=== PATIENT | female | born 1960 | race Caucasian/White ===

== ENCOUNTER 2019-06-21 09:01 | Day surgery (SDC) | payer BC, SELFPAY ==
[2019-06-20 12:51] VITALS: BMI 30.1
[2019-06-21 09:19] VITALS: BP 121/79; PULSE 78; RESP 18; TEMP 37.1; O2SAT 98
--- NOTE | 2019-06-21 09:36 | P.HP_ITS ---
Same Day Surgery H&P Indication for Procedure/HPI DATE OF PROCEDURE: June 21, 2019 CHIEF COMPLAINT/INDICATIONFOR SURGICAL PROCEDURE: Bleeding Per rectum PREOP DIAGNOSIS: Lower GI bleed PLANNED PROCEDRUE: Operation Date: 06/21/19 10:30 Proposed Procedures p EGD/Colon [id number] Z87.19(Not Applicable) - Jesus Velasquez MD s Colonoscopy(Not Applicable) - Jesus Velasquez MD This is a pleasant 58 years old female patient had history of bleeding per rectum and was diagnosed with colitis about couple of months ago patient was treated conservatively and she was presented to my office for further evaluation. After thorough history physical examination and reviewing the chart and images I did branch credit counselor the patient for diagnostic EGD and colonoscopy ROS All systems have been reviewed negative except as for the above or per problem list Medications/Allergies* Home Medications Medication Instructions Recorded Confirmed Type albuterol sulfate 90 mcg/actuation 2 puff INHALATION Q6H PRN 05/10/19 06/21/19 History aerosol inhaler alprazolam 0.25 mg tablet 0.25 mg PO DAILY 05/10/19 06/21/19 History fluoxetine 40 mg capsule 40 mg PO DAILY 05/10/19 06/21/19 History fluticasone propionate 50 2 spray INTRANASAL DAILY 05/10/19 06/21/19 History mcg/actuation nasal spray,suspension levothyroxine 75 mcg capsule 75 mcg PO DAILY 05/10/19 06/21/19 History loratadine 10 mg capsule 10 mg PO DAILY 05/10/19 06/21/19 History pravastatin 40 mg tablet 40 mg PO DAILY 05/10/19 06/21/19 History lisinopril 20 mg PO DAILY 06/20/19 06/21/19 History Allergies/Adverse Reactions Allergy/AdvReac Type Severity Reaction Status Date / Time Penicillins Allergy Severe Unknown Verified 06/21/19 09:51 tetracycline Allergy Severe Unknown Verified 06/21/19 09:51 nitrofurantoin Allergy Intermediate Unknown Verified 06/21/19 09:51 [From Macrobid] Sulfa (Sulfonamide Allergy Mild Unknown Verified 06/21/19 09:51 Antibiotics) Pertinent History/Comorbid Conditions* Medical History (Updated 05/11/19 @ 10:03 by Jesus Velasquez MD) Anxiety Depression History of GI bleed Hypertension Hypothyroidism Surgical History (Updated 05/11/19 @ 10:00 by Jesus Velasquez MD) History of bilateral cataract extraction History of colonoscopy lora- normal History of tonsillectomy Family History (Updated 05/11/19 @ 09:45 by Bel Carballo RN) Denies family history of Anesthesia complication Bleeding disorder Social History Smoking and tobacco status: never smoked Second hand smoke exposure: No Alcohol intake: never Adopted: No Caregiver/support person: Yes Lives independently: Yes Household members: spouse Housing: House Marital status: service: No Current occupational status: retired Pets and animals: No History of recent travel: No Sexually active: No Current gender identity: Female Zita/Voodoo: Anglican Special zita needs: No Agree to transfusion: No Financial difficulty paying for basics: Decline to Answer Pertinent Exam Findings alert, oriented x 3, clear to auscultation bilaterally, regular rate & rhythm and procedure specific exam findings (Abdominal examination nontender nondistended soft no guarding or rigidity) Recommendations Surgery/Procedure today (Diagnostic EGD and colonoscopy and informed consent per chart) Coding Level of Care Code Acute Director Of Special Events for g Gurwinder
--- NOTE | 2019-06-21 09:37 | P.ANESASSM_ITS ---
Pre-Anesthetic Assessment Pre-Anesthetic Assessment: Height/Weight: Height 1.73 m Weight 89.811 kg Temp Pulse Resp BP Pulse Ox 98.8 F 78 18 121/79 98 06/21/19 09:19 06/21/19 09:19 06/21/19 09:19 06/21/19 09:19 06/21/19 09:19 Preop Diagnosis: Lower GI bleed Proposed Procedure: Operation Date: 06/21/19 10:30 Proposed Procedures p EGD/Colon [id number] Z87.19(Not Applicable) - Jesus Velasquez MD s Colonoscopy(Not Applicable) - Jesus Velasquez MD Familial anesthetic complications: none Was Beta Kei taken within 24 hours: N/A Last intake: Intake NPO > 8 hrs Last Liquid Date 06/20/19 Last Solid Date 06/19/19 Social: Social History: No alcohol and No tobacco Exam: Pre-Anes Outpt Exam: alert, oriented x 3, clear to auscultation bilaterally and regular rate & rhythm Airway: Cervical ROM: WNL MP: 4 Dentition: Full Additional comments: receding mandible Pulmonary: Pulmonary: None reported CV/HEM: CV/HEM: HTN : : None reported Hepatic: Hepatic: None reported GI: GI: None reported Metabolic: Metabolic: Thyroid Musc/skel: Musc/skel: None reported Neuropsych: Neuropsych: None reported Anesthetic Plan: ASA status: 2 Anesthesia: MAC Risk of > 500 ml blood loss (7ml/kg in children): No PFSH Anesthesia PFSH: Social History Smoking and tobacco status: never smoked Second hand smoke exposure: No Alcohol intake: never Adopted: No Caregiver/support person: Yes Lives independently: Yes Household members: spouse Housing: House Marital status: service: No Current occupational status: retired Pets and animals: No History of recent travel: No Sexually active: No Current gender identity: Female Zita/Zoroastrianism: Zoroastrianism Special zita needs: No Agree to transfusion: No Financial difficulty paying for basics: Decline to Answer Data Anesthesia Cardiac Studies: No Data to Display
[2019-06-21] MEDS: sodium chloride 0.9% 1,000 ML 30 ML IV (09:45)
[2019-06-21 10:35] VITALS: BP 107/68; PULSE 61; RESP 18; TEMP 36.1; O2SAT 100
[2019-06-21 11:03] VITALS: BP 124/67; PULSE 62; RESP 18; O2SAT 100
== END 2019-06-21 11:14 | disposition home or self-care (01) ==
PROVIDERS: Family Provider Family Medicine; PCP Family Medicine; Visit Provider Surgery
PROC: 0DJ08ZZ Inspection of Upper Intestinal Tract, Via Natural or Artificial Opening Endoscopic (ICD-10-PCS; CPT 43235; principal; 2019-06-21 10:20)
PROC: 0DJD8ZZ Inspection of Lower Intestinal Tract, Via Natural or Artificial Opening Endoscopic (ICD-10-PCS; CPT 45378; 2019-06-21 10:20)
DX: K62.5 Hemorrhage of anus and rectum (principal); K44.9 Diaphragmatic hernia without obstruction or gangrene; K29.70 Gastritis, unspecified, without bleeding; K29.80 Duodenitis without bleeding; I10 Essential (primary) hypertension
CPT/HCPCS: 43235; 45378; 12345; J2001; J2704; J7030

== ENCOUNTER → 2020-04-16 14:32 | Outpatient (BNVA) | payer BC, SELFPAY | PROVIDERS: Family Provider Family Medicine; PCP Family Medicine; Referring Provider Family Medicine; Visit Provider Podiatrist Foot & Ankle Surgery | DX: M79.671 Pain in right foot (principal); M79.672 Pain in left foot | CPT/HCPCS: 73630 ==

== ENCOUNTER 2020-04-16 15:02 | Outpatient (CLI) | payer BC, SELFPAY | END 2020-04-16 15:03 | disposition home or self-care (01) | LOC: SPT 15:05 | PROVIDERS: Family Provider Family Medicine; PCP Family Medicine; Visit Provider Podiatrist Foot & Ankle Surgery | DX: Z46.89 Encounter for fitting and adjustment of other specified devices (principal); M92.60 Juvenile osteochondrosis of tarsus, unspecified ankle | CPT/HCPCS: 97760; L4397 ==

== ENCOUNTER → 2020-04-23 14:56 | Outpatient (BNVA) | payer BC, SELFPAY | PROVIDERS: Family Provider Family Medicine; PCP Family Medicine; Referring Provider Family Medicine; Visit Provider Internal Medicine | DX: E03.9 Hypothyroidism, unspecified (principal); E53.8 Deficiency of other specified B group vitamins; E55.9 Vitamin D deficiency, unspecified; R53.83 Other fatigue; R63.5 Abnormal weight gain | CPT/HCPCS: 99205 ==

== ENCOUNTER 2020-05-10 11:22 | Outpatient (CLI) | payer BC, SELFPAY ==
--- NOTE | 2020-05-10 11:29 | MM_ITS ---
WS: [id number] BILATERAL DIGITAL SCREENING MAMMOGRAPHY WITH CAD CLINICAL INFORMATION: SCREENING HISTORY: Screening mammogram. No current complaints. COMPARISON: TECHNIQUE: Bilateral CC and MLO views. FINDINGS: Scattered fibroglandular densities bilaterally. A few stable ovoid nodules right breast. No suspiciou s focal mass, asymmetry, calcifications, or architectural distortion. No evidence of malignancy. A fe w punctate calcifications. Vascular calcifications. MM/[id number] IMPRESSION: BI-RADS: 2-Benign FOLLOW UP: 1 Year Follow-up Recommend return to annual screening mammography.
== END 2020-05-10 11:23 | disposition home or self-care (01) ==
PROVIDERS: PCP Family Medicine; Visit Provider Family Medicine
DX: Z12.31 Encounter for screening mammogram for malignant neoplasm of breast (principal)
CPT/HCPCS: 77067

== ENCOUNTER 2021-04-23 09:02 | Outpatient (CLI) | payer OTHER, SELFPAY ==
[2021-04-23 09:57] LABS: Free T4 Free Thyroxine 1.46 ng/dL (0.82-1.77)
[2021-04-23 10:34] LABS: Thyroid Stimulating Hormone 3.69 uIU/mL (0.27-4.20)
== END 2021-04-23 09:03 | disposition home or self-care (01) ==
PROVIDERS: PCP Family Medicine; Visit Provider Internal Medicine
DX: E03.9 Hypothyroidism, unspecified (principal)
CPT/HCPCS: 84439; 84443

== ENCOUNTER 2021-06-27 15:02 | Emergency (ER) | payer OTHER, SELFPAY ==
[2021-06-27 15:19] VITALS: BP 145/95; PULSE 91; RESP 18; TEMP 36.6; O2SAT 95; BMI 29.6
--- NOTE | 2021-06-27 16:16 | USR_ITS ---
PROCEDURE INFORMATION: Exam: US Abdomen, Limited; Right Upper Quadrant Exam date and time: 06/27/2021 4:28 PM Age: 60 years old Clinical indication: Abdominal pain; Acute; Additional info: Ruq pain TECHNIQUE: Imaging protocol: US abdomen. Real time ultrasound with image documentation. Limited exam focused on the right upper quadrant. COMPARISON: CT abdomen pelvis w con* [id number] 04/26/2019 6:28 PM FINDINGS: Liver: Moderately increased echotexture in the liver, consistent with moderate fatty infiltration. Gallbladder: The gallbladder is unremarkable. No gallstones or intraluminal sludge. No gallbladder wall thickening. No pericholecystic fluid. Sonographic Berg's sign is negative per report from the fiber technologist. Biliary ducts: Unremarkable. No stones. No dilation. Pancreas: Incomplete visualization of the pancreas due to overlying bowel gas. Visualized portions of the pancreas are unremarkable. Right kidney: The right kidney is unremarkable. Aorta: Visualized aorta is unremarkable. Inferior vena cava: Visualized IVC is unremarkable. Portal venous: Hepatopetal flow in the portal vein. Intraperitoneal space: No ascites. US/US gall bladder [id number] IMPRESSION: 1. Moderate fatty infiltration of the liver. 2. Incidental/nonacute findings are listed in the report.
--- NOTE | 2021-06-27 16:17 | ED_ITS ---
HPI - Abdominal Pain General: Chief Complaint: Abdominal Pain Stated Complaint: Sent over by doctor, gallbladder problems Time Seen by Provider: 06/27/21 16:08 Source: patient Mode of arrival: ambulatory Limitations: no limitations History of Present Illness: Patient is a 60-year-old female presents to ED today with a complaint of right upper quadrant pain over the past 3 days. Patient tells me pain has been fairly constant and worsening in severity. She states pain seems to radiate into her back. She is not complaining of nausea, vomiting, or changes in bowel movements. She does complain of some urinary frequency and urgency. She has not noticed any burning with urination or blood in her urine. She states she was evaluated by the nurse practitioner Dr. Bradley's office and referred to the ED for further evaluation. MD elicited complaint: abdominal pain Onset (ago): day(s) Pain Consistency: constant Location: RUQ Severity: moderate Quality: sharp Radiation: back Migration to: no migration Relieving factors: nothing Associated Symptoms: Denies change in bowel habits, chills, diarrhea, dysuria, fever(s), hematuria, nausea and vomiting Related Data: Patient : No Review of Systems Const: Denies: fever(s), chills, body aches, fatigue or malaise Card: Denies: chest pain Resp: Denies: dyspnea GI: Reports: abdominal pain; Denies: nausea, vomiting, diarrhea or change in bowel habits : Reports: urinary frequency and urinary urgency; Denies: flank pain, difficulty voiding, dysuria, hematuria or pelvic pain Musc: Denies: neck pain, back pain, extremity pain or joint pain Skin/Breast: Denies: rash Neuro: Denies: headache(s) PFS ED PFSH: Medical History Anxiety Depression History of GI bleed Hypertension Hypothyroidism Surgical History History of bilateral cataract extraction History of colonoscopy lora- normal History of tonsillectomy Family History Denies family history of Anesthesia complication Bleeding disorder Social History Smoking and tobacco status: current every day smoker Second hand smoke exposure: No Alcohol intake: never Adopted: No Caregiver/support person: Yes Lives independently: Yes Household members: spouse Housing: House Marital status: service: No Current occupational status: retired Pets and animals: No History of recent travel: No Sexually active: No Current gender identity: Female Zita/Adventist: Spiritism Special zita needs: No Agree to transfusion: No Financial difficulty paying for basics: Decline to Answer Physical Exam Const: COMMON NORMALS: no acute distress, patient oriented x3, no limitations, alert and well nourished GENERAL APPEARANCE: cooperative NUTRITIONAL APPEARANCE: overweight HENMT: COMMON NORMALS: normocephalic and atraumatic HEAD & SCALP: normocephalic and atraumatic Resp: COMMON NORMALS: normal respiratory effort and clear to auscultation bilaterally AUSCULTATION: clear to auscultation bilaterally Cardio: COMMON NORMALS: regular rate and regular rhythm RATE: regular rate RHYTHM: regular rhythm GI: COMMON NORMALS: Normal to inspection, nondistended, normoactive bowel sounds present, Soft to palpation, No hepatosplenomegaly present and no masses INSPECTION: Yes normal to inspection PALPATION: Yes Soft to palpation, Yes Tenderness to palpation present (GI) Details: RUQ, Yes No hepatosplenomegaly present and Yes Other GI palpation findings present (+ Berg's) : COMMON NORMALS: Yes no CVA tenderness BLADDER/KIDNEY EXAM: Yes no CVA tenderness Back/Pelvis: COMMON NORMALS: no CVA tenderness Extremity: COMMON NORMALS: normal to inspection Neuro: JOHANNE COMA SCALE: document GCS findings [place] coma scale eye opening: Spontaneous Johanne coma scale verbal response: Orientated Johanne coma scale motor response: Obey commands Johanne coma scale total score: 15 COMMON NORMALS: patient oriented x3 SENSORIUM/ORIENTATION: Yes alert Skin: COMMON NORMALS: no rashes or lesions noted GENERAL SKIN EXAM: no rashes or lesions noted Course Vital Signs: Vital signs: Vital Signs Temperature 97.8 F 06/27/21 15:19 Pulse Rate 91 06/27/21 15:19 Respiratory Rate 18 06/27/21 15:19 Blood Pressure 145/95 06/27/21 15:19 Pulse Oximetry 95 06/27/21 15:19 MDM - Abdominal Pain Medical Decision Making Patient's vital signs are normal. She has point tenderness to her right upper quadrant. Blood work overall is fairly unremarkable. She has normal LFTs. Gallbladder US is normal. UA is clear. At this time I do not have a clear etiology for her discomfort. I will write her for a small amount of pain/nausea medications and have her watch symptoms closely over the next 24-48 hours. Strict return to ED precautions verbally given to patient. Lab Data : 06/27/21 16:15 06/27/21 16:15 Labs/Radiology: Radiology Impressions Gallbladder Ultrasound 06/27/21 16:16 IMPRESSION: 1. Moderate fatty infiltration of the liver. 2. Incidental/nonacute findings are listed in the report. Laboratory Results WBC 12.6 10^3/uL (4.0-10.0) H 06/27/21 16:15 RBC 5.67 10^6/uL (4.1-5.3) H 06/27/21 16:15 Hgb 15.7 g/dL (11.5-15.3) H 06/27/21 16:15 Hct 50.3 % (37.0-47.0) H 06/27/21 16:15 MCV 88.7 fl (81-99) 06/27/21 16:15 MCH 27.7 pg (28.0-34.0) L 06/27/21 16:15 MCHC 31.2 g/dL (30.0-36.0) 06/27/21 16:15 RDW 13.7 % (12.1-15.1) 06/27/21 16:15 Plt Count 426 10^3/cmm (130-400) H 06/27/21 16:15 MPV 11.3 fL (7.4-10.4) H 06/27/21 16:15 Neut % (Auto) 68.2 % 06/27/21 16:15 Lymph % (Auto) 24.6 % 06/27/21 16:15 [place] % (Auto) 4.9 % 06/27/21 16:15 Eos % (Auto) 0.9 % 06/27/21 16:15 Baso % (Auto) 0.9 % 06/27/21 16:15 Neut # (Auto) 8.62 10^3/uL (1.8-7.7) H 06/27/21 16:15 Lymph # (Auto) 3.1 10^3/uL (0.8-4.8) 06/27/21 16:15 [place]ard # (Auto) 0.6 10^3/uL (0.2-0.9) 06/27/21 16:15 Eos # (Auto) 0.1 10^3/uL (0.0-0.8) 06/27/21 16:15 Baso # (Auto) 0.1 10^3/uL (0.0-0.1) 06/27/21 16:15 Nucleated RBC % (auto) 0 % 06/27/21 16:15 Nucleated RBCs # 0.0 /100WBC 06/27/21 16:15 Sodium 140 mmol/L (136-145) 06/27/21 16:15 Potassium 4.2 mmol/L (3.5-5.1) 06/27/21 16:15 Chloride 101 mmol/L (98-107) 06/27/21 16:15 Carbon Dioxide 27 mmol/L (22-29) 06/27/21 16:15 Anion Gap 16.2 (5-19) 06/27/21 16:15 BUN 11 mg/dL (6-20) 06/27/21 16:15 Creatinine 0.9 mg/dL (0.5-0.9) 06/27/21 16:15 GFR Calculation 64.3 mL/min (90-130) L 06/27/21 16:15 Glucose 136 mg/dL (65-115) H 06/27/21 16:15 Calculated Osmolality 291 mOsm/kg (285-295) 06/27/21 16:15 Calcium 9.9 mg/dL (8.5-10.5) 06/27/21 16:15 Total Bilirubin 0.3 mg/dL (0.15-1.2) 06/27/21 16:15 AST 19 U/L (0-32) 06/27/21 16:15 ALT 20 U/L (0-33) 06/27/21 16:15 Alkaline Phosphatase 142 IU/L (35-105) H 06/27/21 16:15 Total Protein 7.8 g/dL (6.6-8.7) 06/27/21 16:15 Albumin 4.8 g/dL (3.5-5.2) 06/27/21 16:15 Globulin 3.0 g/dL (1.3-4.6) 06/27/21 16:15 Lipase 50 U/L (13-60) 06/27/21 16:15 Urine Color Yellow (Yellow) 06/27/21 15:15 Urine Appearance Clear (CLEAR) 06/27/21 15:15 Urine pH 5 (5-7) 06/27/21 15:15 Ur Specific [place] 1.020 (1.005-1.030) 06/27/21 15:15 Urine Protein Neg (Negative) 06/27/21 15:15 Urine Glucose (UA) Norm (Normal) 06/27/21 15:15 Urine Ketones Negative (Negative) 06/27/21 15:15 Urine Blood Neg (Negative) 06/27/21 15:15 Urine Nitrate Negative (Negative) 06/27/21 15:15 Urine Bilirubin Neg (Negative) 06/27/21 15:15 Urine Urobilinogen 1 mg/dL (Negative) H 06/27/21 15:15 Ur Leukocyte Esterase Negative (Negative) 06/27/21 15:15 Discharge Plan Discharge Patient Disposition: Home Clinical Impression: Right upper quadrant abdominal pain of unknown etiology Condition: Stable Prescriptions: New hydrocodone-acetaminophen 5-325 mg tablet 1 tab PO Q6H PRN (Reason: pain) Qty: 14 0RF ondansetron 4 mg tablet,disintegrating 4 mg PO Q8H PRN (Reason: nausea and vomiting) Qty: 14 0RF No Action albuterol sulfate [ProAir HFA] 90 mcg/actuation HFA aerosol inhaler 2 puff INHALATION Q6H PRN (Reason: ALLERGIES) 0RF fluticasone propionate [Flonase Allergy Relief] 50 mcg/actuation spray,suspension 2 spray INTRANASAL DAILY 0RF alprazolam 0.25 mg tablet 0.25 mg PO DAILY 0RF loratadine 10 mg capsule 10 mg PO DAILY 0RF fluoxetine 40 mg capsule 40 mg PO DAILY 0RF pravastatin 40 mg tablet 40 mg PO DAILY 0RF levothyroxine 75 mcg capsule 75 mcg PO DAILY 0RF Rx Instructions: take 1 tablet Thursday-Thursday, take 1.5 tablets on Thursday and Thursday (DME) Night Splint See Rx Instructions .Route .MEDSUPPLY Qty: 1 0RF Rx Instructions: As directed cholecalciferol (vitamin D3) 50 mcg (2,000 unit) capsule 50 mcg PO DAILY 0RF mecobalamin (vitamin B12) 1,000 mcg tablet,chewable 1,000 mcg PO DAILY 0RF lisinopril 20 mg Tablet 20 mg PO DAILY 0RF Discharge Orders: Discharge ED (Routine); Ordered 06/27/21 Ordered By: Tanya Zambrano Referrals: Jason Bradley MD [Primary Care Provider] - Patient Instructions: Abdominal Pain (ED) Coding Level of Care Code ED Electronic Instrument Trades Worker for Chg Fwd Exam Comprehensive
[2021-06-27 16:29] LABS: Basophils # 0.1 10^3/uL (0.0-0.1); Basophils % 0.9 %; Eosinophils # 0.1 10^3/uL (0.0-0.8); Eosinophils % 0.9 %; Hematocrit 50.3 % (37.0-47.0); Hemoglobin 15.7 g/dL (11.5-15.3); Lymphocytes # 3.1 10^3/uL (0.8-4.8); Lymphocytes % 24.6 %; Mean Corpuscular HGB Conc 31.2 g/dL (30.0-36.0); Mean Corpuscular Hemoglobin 27.7 pg (28.0-34.0); Mean Corpuscular Volume 88.7 fl (81-99); Mean Platelet Volume 11.3 fL (7.4-10.4); Monocytes # 0.6 10^3/uL (0.2-0.9); Monocytes % 4.9 %; Neutrophils # 8.62 10^3/uL (1.8-7.7); Neutrophils % 68.2 %; Nucleated Red Blood Cells % 0 %; Platelet Count 426 10^3/cmm (130-400); Red Blood Count 5.67 10^6/uL (4.1-5.3); Red Cell Distribution Width 13.7 % (12.1-15.1); White Blood Count 12.6 10^3/uL (4.0-10.0)
[2021-06-27 16:37] LABS: Add Urine Microscopic? NO; Charge for UA Resulting for Rev
[2021-06-27 16:41] LABS: Alanine Aminotransferase 20 U/L (0-33); Albumin Level 4.8 g/dL (3.5-5.2); Alkaline Phosphatase 142 IU/L (35-105); Aspartate Amino Transferase 19 U/L (0-32); Blood Urea Nitrogen 11 mg/dL (6-20); Calcium 9.9 mg/dL (8.5-10.5); Carbon Dioxide 27 mmol/L (22-29); Chloride 101 mmol/L (98-107); Glomerular Filtration Rate 64.3 mL/min (90-130); Glucose 136 mg/dL (65-115); Lipase 50 U/L (13-60); Osmolality Calculated 291 mOsm/kg (285-295); Sodium 140 mmol/L (136-145); Total Bilirubin 0.3 mg/dL (0.15-1.2); Total Protein 7.8 g/dL (6.6-8.7)
[2021-06-27 16:48] LABS: Anion Gap 16.2 (5-19); Potassium 4.2 mmol/L (3.5-5.1)
[2021-06-27 16:57] LABS: Bilirubin Urine Neg (Negative); Blood Urine Neg (Negative); Glucose Urine UA Norm (Normal); Ketones Urine Negative (Negative); Leukocyte Esterase Urine Negative (Negative); Nitrate Urine Negative (Negative); Protein Urine Neg (Negative); Urine Appearance Clear (CLEAR); Urine Color Yellow (Yellow); Urobilinogen Urine 1 mg/dL (Negative); pH Urine 5 (5-7)
[2021-06-27] MEDS: ondansetron 2 mg/ML SDV 2 mL 4 MG IVP (17:07)
[2021-06-27] MEDS: morphine 4 mg/mL SDV 1 mL IVP (17:08)
== END 2021-06-27 17:30 | disposition home or self-care (01) ==
PROVIDERS: Emergency Provider Physician Assistant; PCP Family Medicine
DX: R10.11 Right upper quadrant pain (principal); R11.2 Nausea with vomiting, unspecified; R35.0 Frequency of micturition; R39.15 Urgency of urination; F17.200 Nicotine dependence, unspecified, uncomplicated
CPT/HCPCS: 76705; 80053; 81003; 83690; 85025; 96374; 96375; 99284; J2270; J2405

== ENCOUNTER → 2021-07-05 13:00 | Outpatient (BNVA) | payer OTHER, SELFPAY | PROVIDERS: PCP Family Medicine; Visit Provider Family Medicine | DX: R10.9 Unspecified abdominal pain (principal) | CPT/HCPCS: 87506 ==

== ENCOUNTER → 2021-10-24 10:03 | Outpatient (BNVA) | payer OTHER, SELFPAY | PROVIDERS: PCP Family Medicine; Visit Provider Internal Medicine | DX: E03.9 Hypothyroidism, unspecified (principal); R53.83 Other fatigue | CPT/HCPCS: 84439; 84443 ==

== ENCOUNTER → 2022-03-05 15:49 | Outpatient (BNVA) | payer OTHER, SELFPAY | PROVIDERS: PCP Family Medicine; Visit Provider Internal Medicine | DX: R53.83 Other fatigue (principal); E03.9 Hypothyroidism, unspecified; E55.9 Vitamin D deficiency, unspecified | CPT/HCPCS: 36415; 82306; 84439; 84443 ==

== ENCOUNTER 2022-08-29 10:12 | Outpatient (CLI) | payer OTHER, SELFPAY ==
--- NOTE | 2022-08-29 10:27 | MM_ITS ---
WS: [id number] BILATERAL SCREENING DIGITAL TOMOSYNTHESIS MAMMOGRAM WITH CAD HISTORY: SCREENING COMPARISON: 05/10/2020 and 10/06/2017 Bilateral CC and MLO views with tomosynthesis and synthetic mammography submitted. Computer aided det ection analyzed. Breast composition: There are scattered areas of fibroglandular density. No suspicious masses, microc alcifications or architectural distortion. Benign calcifications. No interval change within either br east over several years. MM/[id number] IMPRESSION: BI-RADS: 2-Benign FOLLOW UP: 1 Year Follow-up
[2022-08-29 12:35] LABS: Basophils # 0.1 10^3/uL (0.0-0.1); Eosinophils # 0.2 10^3/uL (0.0-0.8); Eosinophils % 1.6 %; Hematocrit 47.1 % (37.0-47.0); Hemoglobin 14.7 g/dL (11.5-15.3); Lymphocytes # 3.2 10^3/uL (0.8-4.8); Lymphocytes % 27.3 %; Mean Corpuscular HGB Conc 31.2 g/dL (30.0-36.0); Mean Corpuscular Hemoglobin 27.9 pg (28.0-34.0); Mean Corpuscular Volume 89.5 fl (81-99); Mean Platelet Volume 11.1 fL (7.4-10.4); Monocytes # 0.9 10^3/uL (0.2-0.9); Monocytes % 7.6 %; Neutrophils # 7.14 10^3/uL (1.8-7.7); Neutrophils % 61.7 %; Nucleated Red Blood Cells % 0 %; Platelet Count 344 10^3/cmm (130-400); Red Blood Count 5.26 10^6/uL (4.1-5.3); Red Cell Distribution Width 14.1 % (12.1-15.1); White Blood Count 11.6 10^3/uL (4.0-10.0)
[2022-08-29 12:54] LABS: Alanine Aminotransferase 19 U/L (0-33); Albumin Level 4.3 g/dL (3.5-5.2); Alkaline Phosphatase 107 U/L (35-105); Anion Gap 14.2 (5-19); Aspartate Amino Transferase 17 U/L (0-32); Blood Urea Nitrogen 11 mg/dL (8-23); Calcium 9.5 mg/dL (8.5-10.5); Carbon Dioxide 28 mmol/L (22-29); Chloride 103 mmol/L (98-107); Chol HDL Ratio 3.65 mg/dL (0.0-4.40); Cholesterol 190 mg/dL (0-200); Globulin 3.1 g/dL (1.3-4.6); Glomerular Filtration Rate 73.2 mL/min (90-130); Glucose 92 mg/dL (65-115); HDL Cholesterol 52 mg/dL (60-100); LDL Cholesterol Calculated 111 mg/dL (50-129); LDL HDL Ratio 2.13 RATIO (0.00-3.22); Osmolality Calculated 289 mOsm/kg (285-295); Potassium 5.2 mmol/L (3.5-5.1); Sodium 140 mmol/L (136-145); Total Bilirubin 0.3 mg/dL (0.15-1.2); Total Protein 7.4 g/dL (6.6-8.7); Triglycerides 133 mg/dL (0-150)
[2022-08-29 13:02] LABS: Thyroid Stimulating Hormone 1.93 uIU/mL (0.27-4.20)
[2022-08-29 13:10] LABS: 25 Hydroxy Vitamin D 45 ng/mL (30-100)
[2022-08-29 19:39] LABS: Estmated Average Glucose 117; Hemoglobin A1C 5.7 % (4.0-6.0)
== END 2022-08-29 10:13 | disposition home or self-care (01) ==
LOC: RAD 10:16
PROVIDERS: Family Provider Internal Medicine; PCP Family Medicine; Visit Provider Family Medicine
DX: Z12.31 Encounter for screening mammogram for malignant neoplasm of breast (principal); E03.9 Hypothyroidism, unspecified; R53.83 Other fatigue; E55.9 Vitamin D deficiency, unspecified; Z51.81 Encounter for therapeutic drug level monitoring; R73.09 Other abnormal glucose; Z13.220 Encounter for screening for lipoid disorders
CPT/HCPCS: 36415; 77063; 77067; 80053; 80061; 82306; 83036; 84439; 84443; 85025

== ENCOUNTER 2023-05-11 11:19 | Outpatient (CLI) | payer OTHER, SELFPAY ==
[2023-05-11 12:44] LABS: 25 Hydroxy Vitamin D 41 ng/mL (30-100); Thyroid Stimulating Hormone 2.95 uIU/mL (0.27-4.20)
[2023-05-11 15:53] LABS: Free T4 Free Thyroxine 1.47 ng/dL (0.82-1.77)
== END 2023-05-11 11:20 | disposition home or self-care (01) ==
LOC: LAB 11:23
PROVIDERS: PCP Family Medicine; Visit Provider Internal Medicine
DX: E03.9 Hypothyroidism, unspecified (principal); R53.83 Other fatigue; E55.9 Vitamin D deficiency, unspecified
CPT/HCPCS: 36415; 82306; 84439; 84443

== ENCOUNTER 2023-10-20 06:00 | Outpatient (CLI) | payer OTHER, SELFPAY | END 2023-10-20 06:01 | disposition home or self-care (01) | LOC: RAD 10-28 16:08 | PROVIDERS: PCP Family Medicine; Visit Provider Family Medicine | DX: Z00.00 Encounter for general adult medical examination without abnormal findings (principal) | CPT/HCPCS: 87624 ==

== ENCOUNTER 2023-10-29 13:09 | Outpatient (CLI) | payer OTHER, SELFPAY ==
--- NOTE | 2023-10-29 13:30 | MM_ITS ---
WS: [id number] BILATERAL SCREENING DIGITAL TOMOSYNTHESIS MAMMOGRAM WITH CAD HISTORY: Screening mammogram COMPARISON: 08/29/2022, 05/10/2020 and 06/19/2016 Bilateral CC and MLO views with tomosynthesis and synthetic mammography submitted. Computer aided det ection analyzed. Breast composition: There are scattered areas of fibroglandular density. No suspicious masses, microc alcifications or architectural distortion. Intramammary lymph nodes bilaterally. Benign scattered dahlia cifications. Arterial calcifications. MM/[id number] IMPRESSION: BI-RADS: 2 - Benign. FOLLOW UP: 1 Year Follow-up
== END 2023-10-29 13:10 | disposition home or self-care (01) ==
LOC: RAD 13:09
PROVIDERS: PCP Family Medicine; Visit Provider Family Medicine
DX: Z12.31 Encounter for screening mammogram for malignant neoplasm of breast (principal); R92.323 Mammographic fibroglandular density, bilateral breasts; R92.1 Mammographic calcification found on diagnostic imaging of breast
CPT/HCPCS: 77063; 77067

== ENCOUNTER 2023-11-17 09:06 | Outpatient (CLI) | payer OTHER, SELFPAY ==
[2023-11-17 09:34] LABS: Basophils # 0.1 10^3/uL (0.0-0.1); Basophils % 1.3 %; Eosinophils # 0.1 10^3/uL (0.0-0.8); Eosinophils % 1.5 %; Hematocrit 46.3 % (36-47); Lymphocytes # 2.1 10^3/uL (0.8-4.8); Lymphocytes % 25.5 %; Mean Corpuscular HGB Conc 31.7 g/dL (30-55); Mean Corpuscular Hemoglobin 28.5 pg (27-33); Mean Corpuscular Volume 89.7 fl (85-98); Mean Platelet Volume 10.7 fL (7.4-10.4); Monocytes # 0.6 10^3/uL (0.2-0.9); Monocytes % 6.9 %; Neutrophils # 5.28 10^3/uL (1.8-7.7); Neutrophils % 64.3 %; Nucleated Red Blood Cells % 0 %; Platelet Count 337 10^3/cmm (157-399); Red Blood Count 5.16 10^6/uL (3.85-5.65); Red Cell Distribution Width 13.5 % (12.1-15.1); White Blood Count 8.21 10^3/uL (3.29-11.43)
[2023-11-17 09:48] LABS: Estmated Average Glucose 111; Hemoglobin A1C 5.5 % (4.0-6.0)
[2023-11-17 10:08] LABS: Alanine Aminotransferase 15 U/L (0-33); Albumin Level 4.3 g/dL (3.5-5.2); Alkaline Phosphatase 94 U/L (35-105); Anion Gap 15.8 (5-19); Aspartate Amino Transferase 18 U/L (0-32); Blood Urea Nitrogen 14 mg/dL (8-23); Calcium 9.3 mg/dL (8.5-10.5); Carbon Dioxide 27 mmol/L (22-29); Chloride 101 mmol/L (98-107); Chol HDL Ratio 3.61 mg/dL (0.0-4.40); Cholesterol 177 mg/dL (0-200); Globulin 3.3 g/dL (1.3-4.6); Glomerular Filtration Rate 63.7 mL/min (90-130); Glucose 113 mg/dL (65-115); HDL Cholesterol 49 mg/dL (60-100); LDL Cholesterol Calculated 107 mg/dL (50-129); LDL HDL Ratio 2.18 RATIO (0.00-3.22); Osmolality Calculated 291 mOsm/kg (285-295); Potassium 3.8 mmol/L (3.5-5.1); Sodium 140 mmol/L (136-145); Thyroid Stimulating Hormone 3.81 uIU/mL (0.27-4.20); Total Bilirubin 0.3 mg/dL (0.15-1.2); Total Protein 7.6 g/dL (6.6-8.7); Triglycerides 105 mg/dL (0-150)
[2023-11-17 10:28] LABS: 25 Hydroxy Vitamin D 43 ng/mL (30-100)
== END 2023-11-17 09:07 | disposition home or self-care (01) ==
LOC: LAB 09:07
PROVIDERS: PCP Family Medicine; Visit Provider Internal Medicine
DX: E11.9 Type 2 diabetes mellitus without complications (principal); E03.9 Hypothyroidism, unspecified; E55.9 Vitamin D deficiency, unspecified; Z51.81 Encounter for therapeutic drug level monitoring; Z00.00 Encounter for general adult medical examination without abnormal findings; Z13.220 Encounter for screening for lipoid disorders
CPT/HCPCS: 36415; 80053; 80061; 82306; 83036; 84439; 84443; 85025

== ENCOUNTER 2023-11-30 15:00 | Outpatient (CLI) | payer OTHER, SELFPAY ==
--- NOTE | 2023-11-30 15:04 | USR_ITS ---
PROCEDURE INFORMATION: Exam: US Pelvis, Complete, Non-Obstetric Exam date and time: 11/30/2023 3:35 PM Age: 63 years old Clinical indication: Menstruation abnormalities; Irregular menstruation; Additional info: Postmenopausal bleeding TECHNIQUE: Imaging protocol: Transabdominal pelvic nonobstetric ultrasound. Complete exam. Real time ultrasound with image documentation. COMPARISON: US gall bladder [id number] 06/27/2021 4:28 PM FINDINGS: Uterus: Uterus is normal. Thickened endometrium with multiple cystic foci, measuring up to 0.9 cm in thickness. Nabothian cysts noted. Right ovary/adnexa: Obscured by overlying bowel gas. Left ovary/adnexa: Obscured by overlying bowel gas. Intraperitoneal space: No intraperitoneal fluid. Urinary bladder: Normal. US/US pelvic complete* [id number] IMPRESSION: 1. Abnormally thickened endometrium. Referral to OBGYN for endometrial biopsy recommended. 2. Ovaries obscured by overlying bowel gas.
== END 2023-11-30 15:01 | disposition home or self-care (01) ==
LOC: RAD 15:01
PROVIDERS: PCP Family Medicine; Visit Provider Family Medicine
DX: N85.00 Endometrial hyperplasia, unspecified (principal); N95.0 Postmenopausal bleeding
CPT/HCPCS: 76856

== ENCOUNTER 2024-03-31 06:38 | Day surgery (SDC) | payer OTHER, SELFPAY ==
[2024-03-31] VITALS (10 sets, daily range): BP systolic 98–148; BP diastolic 57–100; PULSE 69–90; RESP 14–19; TEMP 36.6–37.1; O2SAT 93–98; BMI 30.4
--- NOTE | 2024-03-31 06:10 | W.PM.OPSFHP ---
Same Day Surgery H&P Indication for Procedure/HPI DATE OF PROCEDURE: March 31, 2024 CHIEF COMPLAINT/INDICATIONFOR SURGICAL PROCEDURE: abnormal uterine bleeding PREOP DIAGNOSIS: abnormal uterine bleeding PLANNED PROCEDURE: Operation Date: 03/31/24 08:10 Proposed Procedures p Hysteroscopy w/ Endometrial Sampling 68125, N95.0(Not Applicable) - Isidoro Mancia MD s Poylpectomy(Not Applicable) - Isidoro Mancia MD 63 y.o. with postmenopausal bleeding and thickened endometrium on ultrasound now scheduled for hysteroscopy, endometrial sampling / polypectomy Medications/Allergies* Home Medications ?Medication ?Instructions ?Recorded ?Confirmed ?Type albuterol sulfate 90 mcg/actuation 2 puff inhalation Q6H PRN ALLERGIES 05/10/19 03/30/24 History aerosol inhaler (ProAir HFA) fluticasone propionate 50 2 spray intranasal DAILY 05/10/19 03/30/24 History mcg/actuation nasal spray,suspension (Flonase Allergy Relief) loratadine 10 mg capsule 10 mg PO DAILY 05/10/19 03/30/24 History cholecalciferol (vitamin D3) 50 50 mcg PO DAILY 04/23/20 03/30/24 History mcg (2,000 unit) capsule mecobalamin (vitamin B12) 1,000 1,000 mcg PO DAILY 04/23/20 03/30/24 History mcg chewable tablet Allergies/Adverse Reactions Allergy/AdvReac Type Severity Reaction Status Date / Time Penicillins Allergy Severe Unknown Verified 01/19/24 10:59 tetracycline Allergy Severe Unknown Verified 01/19/24 10:59 nitrofurantoin (From Allergy Intermediate Unknown Verified 01/19/24 10:59 Macrobid) Sulfa (Sulfonamide Allergy Mild Unknown Verified 01/19/24 10:59 Antibiotics) Pertinent History/Comorbid Conditions* Medical History (Updated 12/10/23 @ 16:53 by Jason Bradley MD) Hypertension Hypothyroidism Anxiety Depression History of GI bleed Surgical History (Updated 05/11/19 @ 10:00 by Jesus Velasquez MD) History of tonsillectomy History of bilateral cataract extraction History of colonoscopy lora- normal Family History (Updated 01/19/24 @ 13:11 by Clemencia Martinez CMA) Heart disease Grandmother Hypertension Father Grandmother Stroke Grandmother Denies family history of Colon cancer Ovarian cancer Diabetes Breast cancer Anesthesia complication Bleeding disorder Uterine cancer Thyroid disease Social History Smoking and tobacco/nicotine status: former use of tobacco/nicotine Quit status (tobacco/nicotine): has quit using Second hand smoke exposure: No Alcohol intake: never Substance/Drug Use: never Adopted: No Caregiver/support person: Yes Lives independently: Yes Household members: spouse Housing: House Marital status: service: No Current occupational status: retired Pets and animals: No Sexually active: No Do you think of yourself as: Straight/Heterosexual Current gender identity: Female Zita/Jewish: Sikh Special zita needs: No Agree to transfusion: No Pertinent Exam Findings alert, oriented x 3, clear to auscultation bilaterally and regular rate & rhythm Recommendations Surgery/Procedure today Coding Level of Care Code Acute Code for Chg Fwd Time Spent (min) 20
[2024-03-31] MEDS: sodium chloride 0.9% 1,000 ML 30 ML IV (07:11)
--- NOTE | 2024-03-31 07:34 | ANES.PREANE2 ---
Pre-Anesthetic Assessment Height/Weight: Height 1.73 m Weight 90.718 kg Temp Pulse Resp BP Pulse Ox O2 Del Method 98.7 F 89 17 148/76 94 Room Air 03/31/24 06:52 03/31/24 06:52 03/31/24 06:52 03/31/24 06:52 03/31/24 06:52 03/31/24 06:52 Preop Diagnosis: abnormal uterine bleeding Operation Date: 03/31/24 08:10 Proposed Procedures p Hysteroscopy w/ Endometrial Sampling 23070, N95.0(Not Applicable) - Isidoro Mancia MD s Poylpectomy(Not Applicable) - Isidoro Mancia MD Familial anesthetic complications: None Was Beta Kei taken within 24 hours: N/A Was Clonidine taken within 24 hours: N/A Last intake: Intake Last Liquid Date 03/30/24 Last Liquid Time 19:00 Last Solid Date 03/30/24 Last Solid Time 16:00 Social No alcohol and No tobacco Exam alert, oriented x 3, clear to auscultation bilaterally and regular rate & rhythm Airway Mallampati: Class IV Dentition: full Comments: Comments: Retrognathic jaw, small mouth opening CV/HEM Hypertension GI Hiatal Hernia Metabolic Hyperlipidemia and Thyroid Disease Anesthetic Plan ASA status: 3 Anesthesia: General Risk of > 500 ml blood loss (7ml/kg in children): No Medications/Allergies Home Medications ?Medication ?Instructions ?Recorded ?Confirmed ?Last Taken ?Type albuterol sulfate 90 mcg/actuation 2 puff inhalation Q6H PRN ALLERGIES 05/10/19 03/30/24 03/27/24 History aerosol inhaler (ProAir HFA) fluticasone propionate 50 2 spray intranasal DAILY 05/10/19 03/30/24 03/28/24 History mcg/actuation nasal spray,suspension (Flonase Allergy Relief) loratadine 10 mg capsule 10 mg PO DAILY 05/10/19 03/30/24 03/30/24 History Night Splint #1 ea 04/16/20 01/19/24 Unknown Rx cholecalciferol (vitamin D3) 50 50 mcg PO DAILY 04/23/20 03/30/24 03/30/24 History mcg (2,000 unit) capsule mecobalamin (vitamin B12) 1,000 1,000 mcg PO DAILY 03/03/1503/30/24 03/30/24 History mcg chewable tablet alprazolam 0.25 mg tablet 0.25 mg PO DAILY #30 tabs 04/21/23 03/30/24 03/02/24 Rx lisinopril 20 mg tablet See Rx Instructions .Route 10/28/23 03/30/24 03/30/24 Rx .COMPLEX #90 tabs pravastatin 40 mg tablet See Rx Instructions .Route 01/14/24 03/30/24 03/30/24 Rx .COMPLEX #90 tabs hydrochlorothiazide 12.5 mg tablet 12.5 mg PO DAILY #30 tabs 02/22/24 03/30/24 03/30/24 Rx fluoxetine 40 mg capsule See Rx Instructions .Route 03/21/24 03/30/24 03/30/24 Rx .COMPLEX #30 caps levothyroxine 88 mcg tablet See Rx Instructions .Route 03/21/24 03/30/24 03/30/24 Rx .COMPLEX #60 tabs Allergies Allergy/AdvReac Type Severity Reaction Status Date / Time Penicillins Allergy Severe Unknown Verified 01/19/24 10:59 tetracycline Allergy Severe Unknown Verified 01/19/24 10:59 nitrofurantoin (From Allergy Intermediate Unknown Verified 01/19/24 10:59 Macrobid) Sulfa (Sulfonamide Allergy Mild Unknown Verified 01/19/24 10:59 Antibiotics) Current Medications Generic Name Dose Route Start Last Admin Trade Name Freq PRN Reason Stop Dose Admin Sodium Chloride 1,000 mls @ 30 mls/hr 03/31/24 07:00 03/31/24 07:11 Sodium Chloride 0.9% IV 04/01/24 06:59 30 mls/hr .Q24H JENNFIER Administration PFSH Anesthesia Medical History Hypertension Hypothyroidism Anxiety Depression History of GI bleed Surgical History History of tonsillectomy History of bilateral cataract extraction History of colonoscopy lora- normal Family History Father Hypertension Grandmother Heart disease Hypertension Stroke Denies family history of Colon cancer Ovarian cancer Diabetes Breast cancer Anesthesia complication Bleeding disorder Uterine cancer Thyroid disease Social History Smoking and tobacco/nicotine status: former use of tobacco/nicotine Quit status (tobacco/nicotine): has quit using Second hand smoke exposure: No Alcohol intake: never Substance/Drug Use: never Adopted: No Caregiver/support person: Yes Lives independently: Yes Household members: spouse Housing: House Marital status: service: No Current occupational status: retired Pets and animals: No Sexually active: No Do you think of yourself as: Straight/Heterosexual Current gender identity: Female Zita/Worship: Anglican Special zita needs: No Agree to transfusion: No Data Anesthesia Cardiac Studies: No Data to Display
--- NOTE | 2024-03-31 08:13 | W.PM.OPSUD ---
Surgery/Procedure H&P Update DATE OF PROCEDURE: March 31, 2024 DATE H&P PERFORMED: 03/31/24 H&P UPDATE INFORMATION: I have reviewed H&P completed within last 30 days, I have examined patient prior to procedure and No changes to prior documentation PREOP DIAGNOSIS: abnormal uterine bleeding PLANNED PROCEDURE: Operation Date: 03/31/24 08:10 Proposed Procedures p Hysteroscopy w/ Endometrial Sampling 17135, N95.0(Not Applicable) - Isidoro Mancia MD s Poylpectomy(Not Applicable) - Isidoro Mancia MD
--- NOTE | 2024-03-31 10:05 | PM.OP ---
Operative Report Date of procedure: March 31, 2024 Pre-op diagnosis: postmenopausal bleeding Post-op diagnosis: same Post-op findings: one 2 cm endometrial polyp Moderate amount of endometrial tissue Procedure done: Hysteroscopy Endometrial sampling and polypectomy with Myosure Implants: none Specimens removed/disposition: endometrial tissue sent to pathology Surgeon: Isidoro Mancia MD Anesthesia: MAC Estimated blood loss (mL): 0 Complications: none Findings: one 2 cm endometrial polyp Moderate amount of endometrial tissue Condition: stable Disposition: PACU Brief History: 63 y.o. with postmenopausal bleeding Procedure: Informed consent signed. Patient was taken to the operating room. Anesthesia was induced. Patient was placed in dorsolithotomy position, prepped and draped for hysteroscopy. A bivalve speculum was placed in the vagina. The cervix and vagina were normal. The anterior lip of the cervix was grasped with a sharp-toothed tenaculum. The cervix was serially dilated with Hegar dilators. The uterus was sounded to 8 cm. A hysteroscope was placed into the endometrial cavity. There was one 2 cm smooth-appearing endometrial polyp. Moderate amount of endometrial tissue was seen. The endocervical canal was normal. A Myosure was then inserted and the endometrial polyp was removed and sent to pathology. Endometrial sampling was also done. The endometrial cavity was seen to be intact. The hysteroscope and Myosure were then removed. Endometrial tissue was sent to pathology. The sharp-toothed tenaculum was removed. There was no bleeding from the endometrial cavity or cervix. The patient was then placed supine and awakened and taken to the PACU. Postop condition: stable EBL: none Sponge and instruments counts were normal x 2 Complications: none
--- NOTE | 2024-03-31 10:45 | ANE.PACU2 ---
Inpatient post-anesthesia follow up: Airway intact: Yes Vital signs: Temperature 98.8 F Pulse Rate 72 Respiratory Rate 16 Blood Pressure 122/68 Pulse Oximetry 98 Oxygen Delivery Me thod Room Air Oxygen Flow Rate Fraction of Inspir ed Oxygen Hydration adequate: Yes Nausea and vomiting: No Pain level: 1 Mental status: Baseline
== END 2024-03-31 10:47 | disposition home or self-care (01) ==
PROVIDERS: PCP Family Medicine; Visit Provider Obstetrics & Gynecology
PROC: 0UJD8ZZ Inspection of Uterus and Cervix, Via Natural or Artificial Opening Endoscopic (ICD-10-PCS; CPT 58555; principal; 2024-03-31 08:00)
DX: N84.0 Polyp of corpus uteri (principal); N95.0 Postmenopausal bleeding; Z79.899 Other long term (current) drug therapy; Z88.2 Allergy status to sulfonamides; Z88.0 Allergy status to penicillin; I10 Essential (primary) hypertension; E03.9 Hypothyroidism, unspecified; F41.9 Anxiety disorder, unspecified; F32.A Depression, unspecified; Z87.891 Personal history of nicotine dependence; E78.5 Hyperlipidemia, unspecified; K44.9 Diaphragmatic hernia without obstruction or gangrene
CPT/HCPCS: 88305; J1100; J1200; J2250; J2371; J2405; J2704; J3010; J7030

== ENCOUNTER → 2024-04-05 09:00 | Outpatient (BNVA) | payer OTHER, SELFPAY | PROVIDERS: PCP Family Medicine; Visit Provider Obstetrics & Gynecology | DX: Z32.01 Encounter for pregnancy test, result positive (principal); R30.0 Dysuria | CPT/HCPCS: 81000; 87086 ==

== ENCOUNTER 2024-04-15 11:46 | Outpatient (CLI) | payer OTHER, SELFPAY ==
[2024-04-15 12:57] LABS: Estmated Average Glucose 117; Free T4 Free Thyroxine 1.49 ng/dL (0.82-1.77); Hemoglobin A1C 5.7 % (4.0-6.0); Thyroid Stimulating Hormone 1.14 uIU/mL (0.27-4.20)
[2024-04-15 13:37] LABS: 25 Hydroxy Vitamin D 39 ng/mL (30-100)
== END 2024-04-15 11:47 | disposition home or self-care (01) ==
LOC: LAB 11:47
PROVIDERS: PCP Family Medicine; Visit Provider Internal Medicine
DX: E55.9 Vitamin D deficiency, unspecified (principal); R73.03 Prediabetes; E03.9 Hypothyroidism, unspecified
CPT/HCPCS: 36415; 82306; 83036; 84439; 84443

== ENCOUNTER → 2024-07-11 09:42 | Outpatient (BNVA) | payer OTHER, SELFPAY | PROVIDERS: PCP Family Medicine; Visit Provider Obstetrics & Gynecology | DX: N92.4 Excessive bleeding in the premenopausal period (principal) | CPT/HCPCS: 76830 ==

== ENCOUNTER 2024-10-11 08:25 | Outpatient (CLI) | payer OTHER, SELFPAY ==
[2024-10-11 09:30] LABS: Estmated Average Glucose 117; Hemoglobin A1C 5.7 % (4.0-6.0)
[2024-10-11 09:41] LABS: Free T4 Free Thyroxine 1.51 ng/dL (0.82-1.77); Thyroid Stimulating Hormone 2.95 uIU/mL (0.27-4.20)
== END 2024-10-11 08:26 | disposition home or self-care (01) ==
PROVIDERS: PCP Family Medicine; Visit Provider Internal Medicine
DX: R73.09 Other abnormal glucose (principal); E55.9 Vitamin D deficiency, unspecified
CPT/HCPCS: 36415; 82306; 83036; 84439; 84443

== ENCOUNTER 2024-11-04 14:31 | Outpatient (CLI) | payer OTHER, SELFPAY ==
--- NOTE | 2024-11-04 14:15 | USR_ITS ---
PROCEDURE INFORMATION: Exam: US Pelvis, Complete, Non-Obstetric Exam date and time: 11/04/2024 3:39 PM Age: 64 years old Clinical indication: Abnormal findings; Abnormal imaging test; Additional info: R93.89 - abnormal findings on diagnostic imaging of other. . . TECHNIQUE: Imaging protocol: Transabdominal pelvic nonobstetric ultrasound. Complete exam. Real time ultrasound with image documentation. COMPARISON: US transvaginal [id number] 07/11/2024 9:47 AM FINDINGS: Uterus: Endometrial thickness of 0.5 cm (previously endometrial thickness measured 1 cm.) Otherwise unremarkable appearance of the uterus with normal measurements. Right ovary/adnexa: The right ovary is not visualized due to overlying bowel gas pattern. Left ovary/adnexa: The left ovary is not visualized due to overlying bowel gas pattern. Intraperitoneal space: No intraperitoneal fluid. Urinary bladder: Normal. US/US pelv w/transvag [id number] IMPRESSION: Mild persistent endometrial thickening despite improved compared to prior examination. Measuring today up to 5 mm where it previously measured 10 mm. Findings may relate to endometrial hyperplasia. Precautionary short-term follow up can be made.
== END 2024-11-04 14:32 | disposition home or self-care (01) ==
LOC: RAD 14:33
PROVIDERS: PCP Family Medicine; Visit Provider Obstetrics & Gynecology
DX: R93.89 Abnormal findings on diagnostic imaging of other specified body structures (principal)
CPT/HCPCS: 76830; 76856